=== PATIENT | male | born 1970 | race African-American/Black ===

== ENCOUNTER → 2024-02-22 13:17 | Outpatient (CLI) | payer OTHER, SELFPAY | PROVIDERS: Visit Provider Nurse Practitioner Family | DX: J02.9 Acute pharyngitis, unspecified (principal) | CPT/HCPCS: 87070 ==

== ENCOUNTER 2024-02-23 16:55 | Emergency (ER) | payer OTHER, SELFPAY ==
[2024-02-23] VITALS (7 sets, daily range): BP systolic 167–168; BP diastolic 78–82; PULSE 66–75; RESP 16–18; TEMP 36.8; O2SAT 96–100; BMI 27.6
--- NOTE | 2024-02-23 17:10 | ED.RECABL ---
HPI - Recheck/Abnormal Lab/Rx <Brittny Boateng PA-C - Last Filed: 02/23/24 18:45> General Chief Complaint: Recheck/Abnormal Lab/Rx Stated Complaint: states throat is closing, SOB Time Seen by Provider: 02/23/24 17:10 Source: patient Mode of arrival: Ambulatory History of Present Illness HPI narrative: 53-year-old male presents for persistent and worsening left-sided throat pain and ear pain. He was seen in our walk-in clinic yesterday had a rapid strep which was negative and a throat culture which is showing light growth of mixed edith. He is denying any fever, any difficulty swallowing but does have pain with swallowing. He was treated with a 3 day prednisone burst 40 mg daily which he is tolerating. He feels swollen on the left side of his jaw and has pain if he touches the area. He is denying any neck pain or stiffness. No injury or other recent illness. He has had all of his childhood vaccinations. All other systems reviewed and are negative. Related Data Previous Rx's Medication Instructions Recorded prednisone 20 mg tablet 40 mg (2 x 20 mg) PO DAILY #6 tabs 02/22/24 amoxicillin 875 mg-potassium 1 tab PO BID #20 tabs 02/23/24 clavulanate 125 mg tablet Allergies Allergy/AdvReac Type Severity Reaction Status Date / Time Iodinated Contrast Media Allergy Unknown Verified 02/23/24 17:06 elijah Allergy Verified 02/23/24 17:06 Review of Systems <Brittny Boateng PA-C - Last Filed: 02/23/24 18:45> Review of Systems Narrative: All other systems reviewed and are negative. Patient History <Brittny Boateng PA-C - Last Filed: 02/23/24 18:45> Social History Smoking Status: Never smoker Smoking Status: Never smoker alcohol intake frequency: holidays/special occasions only Substance Use Type: does not use Exam <Brittny Boateng PA-C - Last Filed: 02/23/24 18:45> Initial Vital Signs Initial Vital Signs: Vital Signs Pulse Oximetry 100 02/23/24 17:03 Vital signs reviewed and are normal except for elevated systolic Const Other: 53-year-old seated, no distress, speech is clear, no hot potato voice. Nontoxic appearing. Work of breathing is normal. HENMT Head: normal to inspection Ears: hearing grossly normal bilaterally, external ears normal, TM's normal bilaterally, EAC's normal, mastoids normal and other (Pain with tragus press and movement of auricle, no guarding.) Nose: external nose normal, nares normal and nasal mucous membranes and turbinates normal Eyes General: Yes appearance normal, both eyes and all related structures Periorbital: periorbital findings normal EOM: EOM intact bilaterally and no movement deficit Neck Neck: full ROM, no meningeal signs, trachea midline and lymphadenopathy Other: Tenderness along the preauricular as well as anterior and posteriorcervical regions no fluctuance. tissues are warm not hot to the touch. No lesions. No rash. Resp Auscultation: clear to auscultation bilaterally, no rales, no rhonchi and no wheezes Cardio Rate: regular rate Rhythm: regular rhythm GI Inspection: normal to inspection Palpation: soft and no hepatosplenomegaly <Chichi Ny MD - Last Filed: 02/24/24 18:29> Initial Vital Signs Initial Vital Signs: Vital Signs Pulse Oximetry 100 02/23/24 17:03 Course <Brittny Boateng PA-C - Last Filed: 02/23/24 18:45> Orders Ordered: Discontinued Medications Ceftriaxone Sodium 2,000 mg/ (Sodium Chloride) 100 mls @ 200 mls/hr IV NOW ONE Stop: 02/23/24 17:41 Last Infusion: 02/23/24 18:30 Dose: Infused Documented By: Admin: 02/23/24 17:45 Dose: 200 mls/hr Documented By: Ketorolac Tromethamine (Ketorolac 30 Mg/Ml Vial) 30 mg IV NOW ONE Stop: 02/23/24 17:12 Last Admin: 02/23/24 17:23 Dose: 30 mg Documented By: RL Methylprednisolone (Methylprednisolone 125 Mg/2 Ml Vial) 125 mg IV NOW ONE Stop: 02/23/24 17:41 Last Admin: 02/23/24 17:45 Dose: 125 mg Documented By: Consultations Consultation #1: Discussed this patient with Attending, Dr. Ny, who also examined the patient directly. Likely tonsillar cellulitis at this point. Vital Signs Vital signs: Vital Signs - 8 hr 02/23/24 17:06 Temperature 98.3 F Pulse Rate 75 Respiratory Rate 18 Blood Pressure 168/82 H Pulse Oximetry 100 Oxygen Delivery Method Room Air <Chichi Ny MD - Last Filed: 02/24/24 18:29> Orders Ordered: Discontinued Medications Ceftriaxone Sodium 2,000 mg/ (Sodium Chloride) 100 mls @ 200 mls/hr IV NOW ONE Stop: 02/23/24 17:41 Last Infusion: 02/23/24 18:30 Dose: Infused Documented By: Admin: 02/23/24 17:45 Dose: 200 mls/hr Documented By: Ketorolac Tromethamine (Ketorolac 30 Mg/Ml Vial) 30 mg IV NOW ONE Stop: 02/23/24 17:12 Last Admin: 02/23/24 17:23 Dose: 30 mg Documented By: RL Methylprednisolone (Methylprednisolone 125 Mg/2 Ml Vial) 125 mg IV NOW ONE Stop: 02/23/24 17:41 Last Admin: 02/23/24 17:45 Dose: 125 mg Documented By: Vital Signs Vital signs: Vital Signs - 8 hr 02/23/24 17:06 Temperature 98.3 F Pulse Rate 75 Respiratory Rate 18 Blood Pressure 168/82 H Pulse Oximetry 100 Oxygen Delivery Method Room Air MDM - Recheck/Abnormal Lab/Rx <Brittny Boateng PA-C - Last Filed: 02/23/24 18:45> Lab Data Lab results narrative: CBC show WBC 17.3 (afebrile, normal vital signs), PLT 72 (no prior labs on record for comparison). Elevated CRP 3.8, and ESR 31. 02/23/24 17:18 02/23/24 17:18 Labs: Lab Results 02/23/24 Range/Units 17:18 WBC 17.3 H (4.5-11.0) X10^3/uL RBC 3.87 L (4.5-5.9) X10^6/uL Hgb 12.1 L (13.5-17.5) g/dL Hct 36.0 L (41-53) % MCV 93.1 (80-100) fL MCH 31.3 (26-34) PG MCHC 33.7 (30-36) % RDW 13.4 (11.6-14.8) % Plt Count 72 L (150-400) X10^3/uL Neut % (Auto) 78.2 H (50-75) % Lymph % (Auto) 12.1 L (25-40) % Piute % (Auto) 9.3 (3-14) % Eos % (Auto) 0.0 L (2-4) % Baso % (Auto) 0.4 (0-2) % Neut # (Auto) 88362 H (2176-4705) /uL Lymph # (Auto) 2100 (2548-0857) /uL Piute # (Auto) 1600 H (0-900) /uL Eos # (Auto) 0 (0-450) /uL Baso # (Auto) 100 (0-100) /uL RBC Morphology Normal morphology ESR 31 H (0-15) MM/HR Sodium 137 (137-145) mmol/L Potassium 4.5 (3.4-5.1) mmol/L Chloride 105 (98-107) mmol/L Carbon Dioxide 20 L (22-32) mmol/L BUN 16 (9-20) mg/dL Creatinine 1.09 (0.66-1.25) mg/dL Estimated GFR > 60 (>60) mL/min BUN/Creatinine Ratio 14.7 (6-22) Glucose 119 H (70-100) mg/dL Calcium 9.8 (8.4-10.2) mg/dL Total Bilirubin 1.0 (0.2-1.3) mg/dL AST 39 (17-59) IU/L ALT 33 (<50) IU/L Alkaline Phosphatase 70 (38-126) U/L C-Reactive Protein 3.8 H (<1.0) mg/dL Total Protein 8.6 H (6.3-8.2) g/dL Albumin 4.9 (3.5-5.0) g/dL Globulin 3.7 (1.7-4.1) g/dL Albumin/Globulin Ratio 1.3 (1.0-2.8) Monoscreen Negative (Negative) MDM Narrative Medical decision making narrative: Discussed the patient with Dr. Ny who examined the patient directly. CT not performed tonight (iodine allergy as well). Left tonsillar cellulitis, differential includes peritonsillar abscess, retropharyngeal abscess. He is afebrile. No uvula shift. No pharyngeal obstruction (no kissing tonsils), no neck stiffness. Incidental finding of low platelets (72) and discussed these findings with Dr. Tate. Advised patient to follow-up with his PCP and have his blood work rechecked. <Chichi Ny MD - Last Filed: 02/24/24 18:29> Lab Data Labs: Lab Results 02/23/24 Range/Units 17:18 WBC 17.3 H (4.5-11.0) X10^3/uL RBC 3.87 L (4.5-5.9) X10^6/uL Hgb 12.1 L (13.5-17.5) g/dL Hct 36.0 L (41-53) % MCV 93.1 (80-100) fL MCH 31.3 (26-34) PG MCHC 33.7 (30-36) % RDW 13.4 (11.6-14.8) % Plt Count 72 L (150-400) X10^3/uL Neut % (Auto) 78.2 H (50-75) % Lymph % (Auto) 12.1 L (25-40) % Piute % (Auto) 9.3 (3-14) % Eos % (Auto) 0.0 L (2-4) % Baso % (Auto) 0.4 (0-2) % Neut # (Auto) 38041 H (6882-1908) /uL Lymph # (Auto) 2100 (8055-6427) /uL Piute # (Auto) 1600 H (0-900) /uL Eos # (Auto) 0 (0-450) /uL Baso # (Auto) 100 (0-100) /uL RBC Morphology Normal morphology ESR 31 H (0-15) MM/HR Sodium 137 (137-145) mmol/L Potassium 4.5 (3.4-5.1) mmol/L Chloride 105 (98-107) mmol/L Carbon Dioxide 20 L (22-32) mmol/L BUN 16 (9-20) mg/dL Creatinine 1.09 (0.66-1.25) mg/dL Estimated GFR > 60 (>60) mL/min BUN/Creatinine Ratio 14.7 (6-22) Glucose 119 H (70-100) mg/dL Calcium 9.8 (8.4-10.2) mg/dL Total Bilirubin 1.0 (0.2-1.3) mg/dL AST 39 (17-59) IU/L ALT 33 (<50) IU/L Alkaline Phosphatase 70 (38-126) U/L C-Reactive Protein 3.8 H (<1.0) mg/dL Total Protein 8.6 H (6.3-8.2) g/dL Albumin 4.9 (3.5-5.0) g/dL Globulin 3.7 (1.7-4.1) g/dL Albumin/Globulin Ratio 1.3 (1.0-2.8) Monoscreen Negative (Negative) Discharge Plan Departure Patient Disposition: Home Clinical Impression: Peritonsillar cellulitis, Thrombocytopenia Instructions: DI for Pharyngitis/Tonsillopharyngitis -- Adult Activity Restrictions/Additional Instructions: Your diagnosis tonight is tonsillar cellulitis which is an infection of the tissues in and surrounding your left tonsil. 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 If anything worsens or changes please do not hesitate to return to the emergency department. Your blood work today confirmed ear infection, there was an incidental finding of lower than normal platelets, this can occur during infections but I would like you to follow up with your primary care provider and have your blood work rechecked at the next available appointment. Prescriptions: New amoxicillin-pot clavulanate 875-125 mg tablet 1 tab PO BID Qty: 20 0RF No Action prednisone 20 mg tablet 40 mg PO DAILY Qty: 6 0RF Referrals: Miscellaneous,DoctorMD [Primary Care Provider] - Stand Alone Forms: Patient Portal/API ED Sign-out <Chichi Ny MD - Last Filed: 02/24/24 18:29> Cosign ED Attending Jackature Attestation: I was immediately available in the department for consultation throughout this patient's visit. Chichi Ny MD
[2024-02-23] MEDS: KETOROLAC 30 MG/ML VIAL IV (17:23)
[2024-02-23 17:31] LABS: Basophils Absolute Auto 100 /uL (0-100); Basophils Percent Auto 0.4 % (0-2); Eosinophils Absolute Auto 0 /uL (0-450); Hemoglobin 12.1 g/dL (13.5-17.5); Lymphocytes Absolute Auto 2100 /uL (1100-4500); Lymphocytes Percent Auto 12.1 % (25-40); Mean Corpuscular HGB Conc 33.7 % (30-36); Mean Corpuscular Hemoglobin 31.3 PG (26-34); Mean Corpuscular Volume 93.1 fL (80-100); Monocytes Absolute Auto 1600 /uL (0-900); Monocytes Percent Auto 9.3 % (3-14); Neutrophils Absolute Auto 13500 /uL (1500-7000); Neutrophils Percent Auto 78.2 % (50-75); Platelet Count 72 X10^3/uL (150-400); Red Blood Cell Count 3.87 X10^6/uL (4.5-5.9); Red Cell Distribution Width 13.4 % (11.6-14.8); White Blood Cell Count 17.3 X10^3/uL (4.5-11.0)
[2024-02-23 17:39] LABS: Add Manual Diff / Slide Review SLIDE REVIEW
[2024-02-23 17:40] LABS: Monotest Negative (Negative)
[2024-02-23 17:42] LABS: Alanine Aminotransferase 33 IU/L (<50); Albumin 4.9 g/dL (3.5-5.0); Albumin Globulin Ratio 1.3 (1.0-2.8); Alkaline Phosphatase 70 U/L (38-126); Aspartate Aminotransferase 39 IU/L (17-59); BUN Creatinine Ratio 14.7 (6-22); Blood Urea Nitrogen 16 mg/dL (9-20); C-Reactive Protein Quant 3.8 mg/dL (<1.0); Calcium 9.8 mg/dL (8.4-10.2); Carbon Dioxide 20 mmol/L (22-32); Chloride 105 mmol/L (98-107); Estimated Glomerular Filt Rate > 60 mL/min (>60); Globulin 3.7 g/dL (1.7-4.1); Glucose 119 mg/dL (70-100); HEMOLYSIS < 15 (0-50); Potassium 4.5 mmol/L (3.4-5.1); Sodium 137 mmol/L (137-145); Total Protein 8.6 g/dL (6.3-8.2)
[2024-02-23] MEDS: cefTRIAXone 2,000 MG in SODIUM CHLORIDE 0.9% 100 ML 200 MG IV (17:45)
[2024-02-23] MEDS: methylPREDNISolone 125 MG/2 ML VIAL IV (17:45)
[2024-02-23 17:54] LABS: Erythrocyte Sedimentation Rate 31 MM/HR (0-15)
[2024-02-23 17:56] LABS: RBC Morphology Normal Morphology
== END 2024-02-23 19:05 | disposition home or self-care (01) ==
PROVIDERS: Emergency Provider Physician Assistant Medical
DX: J36 Peritonsillar abscess (principal); D69.6 Thrombocytopenia, unspecified
CPT/HCPCS: 36415; 80053; 85025; 85651; 86140; 86318; 96365; 96375; 99284; J0696; J1885; J2919